=== PATIENT | male | born 1975 | race Caucasian/White ===

== ENCOUNTER 2020-11-20 17:22 | Emergency (ER) | payer OTHER, SELFPAY ==
[2020-11-20 17:36] VITALS: BP 162/90; PULSE 68; RESP 18; TEMP 36.3; O2SAT 96; BMI 37.3
--- NOTE | 2020-11-20 17:50 | ECG_ITS ---
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
[2020-11-20 18:05] VITALS: BP 142/82; PULSE 64; RESP 16; O2SAT 94
[2020-11-20 18:12] LABS: Add Urine Microscopic? NO
[2020-11-20 18:14] LABS: Basophils # 0.1 10^3/uL (0.0-0.1); Basophils % 0.9 %; Eosinophils # 0.4 10^3/uL (0.0-0.8); Eosinophils % 4.2 %; Hematocrit 43.6 % (42.0-52.0); Hemoglobin 14.8 g/dL (11.7-16.6); Lymphocytes # 2.8 10^3/uL (0.8-4.8); Lymphocytes % 31.4 %; Mean Corpuscular HGB Conc 33.9 g/dL (30.0-36.0); Mean Corpuscular Hemoglobin 32.1 pg (28.0-34.0); Mean Corpuscular Volume 94.6 fL (80-94); Mean Platelet Volume 10.5 fL (7.4-10.4); Monocytes # 0.6 10^3/uL (0.2-0.9); Monocytes % 6.6 %; Neutrophils # 4.96 10^3/uL (1.8-7.7); Neutrophils % 56.7 %; Nucleated Red Blood Cells % 0 %; Platelet Count 235 10^3/cmm (130-400); Red Blood Count 4.61 10^6/uL (4.1-5.3); Red Cell Distribution Width 12.5 % (12.1-15.1); White Blood Count 8.8 10^3/uL (4.0-10.0)
[2020-11-20 18:38] LABS: Alanine Aminotransferase 34 U/L (0-41); Albumin Level 4.2 g/dL (3.5-5.2); Alkaline Phosphatase 89 IU/L (40-130); Anion Gap 13.4 (5-19); Aspartate Amino Transferase 16 U/L (0-40); Blood Urea Nitrogen 17 mg/dL (6-20); Calcium 9.5 mg/dL (8.5-10.5); Carbon Dioxide 28 mmol/L (22-29); Chloride 103 mmol/L (98-107); Globulin 2.6 g/dL (1.3-4.6); Glomerular Filtration Rate 103.6 mL/min (90-130); Glucose 182 mg/dL (65-115); Lipase 56 U/L (13-60); Osmolality Calculated 296 mOsm/kg (285-295); Potassium 4.4 mmol/L (3.5-5.1); Sodium 140 mmol/L (136-145); Total Bilirubin 0.7 mg/dL (0.15-1.2); Total Protein 6.8 g/dL (6.6-8.7)
[2020-11-20 18:39] LABS: Lactate (Lactic Acid level) 1.3 mmol/L (0.5-2.2)
[2020-11-20 18:40] LABS: Troponin(5th) Baseline 7 ng/L (0-15)
[2020-11-20 18:42] LABS: Bilirubin Urine Neg (Negative); Blood Urine Neg (Negative); Glucose Urine UA Norm (Normal); Ketones Urine 1+ (Negative); Leukocyte Esterase Urine Negative (Negative); Nitrate Urine Negative (Negative); Protein Urine Neg (Negative); Specific Gravity, Urine 1.015 (1.005-1.030); Urine Appearance Clear (CLEAR); Urine Color Yellow (Yellow); Urobilinogen Urine 4 mg/dL (Negative); pH Urine 7 (5-7)
--- NOTE | 2020-11-20 18:52 | CTR_ITS ---
PROCEDURE INFORMATION: Exam: CT Abdomen And Pelvis With Contrast Exam date and time: 11/20/2020 7:39 PM Age: 45 years old Clinical indication: Abdominal pain; Patient HX: C/O L periumbilical pain TECHNIQUE: Imaging protocol: Computed tomography of the abdomen and pelvis with contrast. Radiation optimization: All CT scans at this facility use at least one of these dose optimization techniques: automated exposure control; mA and/or kV adjustment per patient size (includes targeted exams where dose is matched to clinical indication); or iterative reconstruction. Contrast material: OMNI 300; Contrast volume: 95 ml; Contrast route: INTRAVENOUS (IV); COMPARISON: No relevant prior studies available. RADIATION DOSE METRICS: Total DLP (mGy-cm): 1910.19 FINDINGS: Liver: Normal. No mass. Gallbladder and bile ducts: Normal. No calcified stones. No ductal dilation. Pancreas: Normal. No ductal dilation. Spleen: Normal. No splenomegaly. Adrenal glands: Normal. No mass. Kidneys and ureters: Normal. No hydronephrosis. Stomach and bowel: Colonic constipation is present. There is a 2 mm metallic density along the inferior aspect of the proximal descending colon. Appendix: A normal appendix is identified. Intraperitoneal space: Unremarkable. No free air. No significant fluid collection. Vasculature: Unremarkable. No abdominal aortic aneurysm. Lymph nodes: Unremarkable. No enlarged lymph nodes. Urinary bladder: Unremarkable as visualized. Reproductive: Unremarkable as visualized. Bones/joints: Unremarkable. No acute fracture. Soft tissues: Small fat containing umbilical hernia. CT/CT abdomen pelvis w con* [id number] IMPRESSION: Colonic constipation is present. Radiation Dose CTDIVOL = (mGy): DLP = 1910.19 (mGy-cm)
[2020-11-20] MEDS: ondansetron 2 mg/ML SDV 2 mL 4 MG IVP (19:00)
[2020-11-20] MEDS: ketorolac 30 mg/mL INJ IVP (19:00)
[2020-11-20] MEDS: enalaprilat 1.25 mg/mL Inj IVP (19:49)
[2020-11-20 19:50] VITALS: BP 180/115; PULSE 69; RESP 18; O2SAT 96
[2020-11-20] MEDS: iohexol 300 mg/mL 100 mL Btl IV (19:57)
[2020-11-20 20:09] VITALS: PULSE 89; RESP 18; O2SAT 95
--- NOTE | 2020-11-20 20:39 | ED_ITS ---
HPI - Abdominal Pain General: Chief Complaint: Abdominal Pain Stated Complaint: RLQ PA[place] [facility] [place] Time Seen by Provider: 11/20/20 18:20 History of Present Illness: HPI narrative: 45-year-old with periumbilical pain. He states he has had it since this afternoon. He states he was laughing when it started, it was sudden onset of a sharp stabbing pain around his bellybutton. It is very tender to touch. No fever, no nausea, no vomiting, no diarrhea, no blood in the stool. MD elicited complaint: abdominal pain Pertinent past history: none Onset (ago): hour(s) Pain Consistency: constant Location: Periumbilical Severity: moderate Quality: stabbing and sharp Radiation: none Migration to: no migration Exacerbating factors: movement Relieving factors: nothing Associated Symptoms: Denies GI cramping, diarrhea, dysuria, fever(s), hematochezia, hematuria, nausea and vomiting Review of Systems Const: Denies: fever(s) Eyes: Denies: change in vision ENMT: Denies: odynophagia or sinus pain Card: Denies: chest pain or palpitations Resp: Denies: dyspnea, productive cough, non-productive cough or wheezing GI: Denies: nausea, vomiting, diarrhea, GI cramping or hematochezia : Denies: dysuria or hematuria Musc: Denies: neck pain or back pain Skin/Breast: Denies: rash or erythema Neuro: Denies: headache(s), dizziness or vertigo Psych: Denies: anxiety PFSH ED PFSH: Social History (Updated 11/20/20 @ 16:53 by Brittani Browning LPN) Smoking and tobacco status: never smoked Physical Exam Const: GENERAL APPEARANCE: well developed ORIENTATION/CONSCIOUSNESS: Yes oriented to person, Yes oriented to place and Yes oriented to time HENMT: COMMON NORMALS: normocephalic, external ears normal and Normal external nose present HEAD & SCALP: normocephalic FACE & SINUS: normal facial exam NOSE: Normal external nose present and No nasal discharge present EXTERNAL EAR: Yes external ears normal Eye: COMMON NORMALS: Equal, round and reactive pupils present, EOMs intact bilaterally and conjunctivae normal EYELID: eyelids normal CONJUNCTIVA: Yes conjunctivae normal PUPIL: Yes Equal, round and reactive pupils present Neck/C-Spine: GENERAL: No tracheal deviation Chest: COMMONS NORMALS: normal inspection of the chest CHEST: No tenderness Resp: COMMON NORMALS: clear to auscultation bilaterally EFFORT & INSPECTION: No tachypneic, No respiratory distress, No retractions, No uses accessory muscles and No tracheal deviation AUSCULTATION: clear to auscultation bilaterally, no rhonchi, no wheezes and lung sounds not diminished Cardio: COMMON NORMALS: regular rate and regular rhythm RATE: regular rate RHYTHM: regular rhythm HEART SOUNDS: no murmurs PERIPHERAL PULSES: radial pulses present GI: COMMON NORMALS: Soft to palpation INSPECTION: No abdominal distension AUSCULTATION: No Hyperactive bowel sounds present and No Hypoactive bowel sounds present PALPATION: Yes Soft to palpation, Yes Tenderness to palpation present (GI) (Focal umbilical), No Guarding due to palpation present (GI) and No Rigid due to palpation PERCUSSION: no dullness to percussion and no tympanic to percussion Neuro: SENSORIUM/ORIENTATION: Yes oriented to person, Yes oriented to place and Yes oriented to time Psych: COMMON NORMALS: mental status grossly normal Skin: COMMON NORMALS: no rashes or lesions noted GENERAL SKIN EXAM: no rashes or lesions noted Course Vital Signs: Vital signs: Vital Signs Temperature 97.3 F L 11/20/20 17:36 Pulse Rate 59 L 11/20/20 21:33 Respiratory Rate 18 11/20/20 21:33 Blood Pressure 149/91 11/20/20 21:33 Pulse Oximetry 96 11/20/20 21:33 MDM - Abdominal Pain MDM Narrative: Medical decision making narrative: Patient is hypertensive. He is given medication for this. Blood pressure is down to 154/98 currently. He is asymptomatic with this. Patient refused morphine. Took the Toradol. CT of the belly shows constipation and a small fat-containing umbilical hernia where he is tender. There is no got incarceration. His labs are essentially normal. He will be allowed home. Lab Data: Labs: Lab Results 11/20/20 11/20/20 11/20/20 Range/Units 17:59 18:00 18:00 WBC 8.8 (4.0-10.0) 10^3/ uL RBC 4.61 (4.1-5.3) 10^6/u L Hgb 14.8 (11.7-16.6) g/dL Hct 43.6 (42.0-52.0) % MCV 94.6 H (80-94) fL MCH 32.1 (28.0-34.0) pg MCHC 33.9 (30.0-36.0) g/dL RDW 12.5 (12.1-15.1) % Plt Count 235 (130-400) 10^3/c mm MPV 10.5 H (7.4-10.4) fL Neut % (Auto) 56.7 % Lymph % (Auto) 31.4 % Hettinger % (Auto) 6.6 % Eos % (Auto) 4.2 % Baso % (Auto) 0.9 % Neut # (Auto) 4.96 (1.8-7.7) 10^3/u L Lymph # (Auto) 2.8 (0.8-4.8) 10^3/u L Hettinger # (Auto) 0.6 (0.2-0.9) 10^3/u L Eos # (Auto) 0.4 (0.0-0.8) 10^3/u L Baso # (Auto) 0.1 (0.0-0.1) 10^3/u L Nucleated RBC % (a uto) 0 % Nucleated RBCs # 0.0 /100WBC Sodium 140 (136-145) mmol/L Potassium 4.4 (3.5-5.1) mmol/L Chloride 103 (98-107) mmol/L Carbon Dioxide 28 (22-29) mmol/L Anion Gap 13.4 (5-19) BUN 17 (6-20) mg/dL Creatinine 0.8 (0.7-1.2) mg/dL GFR Calculation 103.6 (90-130) mL/min Glucose 182 H (65-115) mg/dL Calculated Osmolal ity 296 H (285-295) mOsm/k g Lactate (0.5-2.2) mmol/L Calcium 9.5 (8.5-10.5) mg/dL Total Bilirubin 0.7 (0.15-1.2) mg/dL AST 16 (0-40) U/L ALT 34 (0-41) U/L Alkaline Phosphata se 89 (40-130) IU/L Troponin T Baselin e (0-15) ng/L Total Protein 6.8 (6.6-8.7) g/dL Albumin 4.2 (3.5-5.2) g/dL Globulin 2.6 (1.3-4.6) g/dL Lipase 56 (13-60) U/L Urine Color Yellow (Yellow) Urine Appearance Clear (CLEAR) Urine pH 7 (5-7) Ur Specific Gravit y 1.015 (1.005-1.030) Urine Protein Neg (Negative) Urine Glucose (UA) Norm (Normal) Urine Ketones 1+ H (Negative) Urine Blood Neg (Negative) Urine Nitrate Negative (Negative) Urine Bilirubin Neg (Negative) Urine Urobilinogen 4 H (Negative) mg/dL Ur Leukocyte Taylor ase Negative (Negative) 11/20/20 11/20/20 Range/Units 18:00 18:00 WBC (4.0-10.0) 10^3/ uL RBC (4.1-5.3) 10^6/u L Hgb (11.7-16.6) g/dL Hct (42.0-52.0) % MCV (80-94) fL MCH (28.0-34.0) pg MCHC (30.0-36.0) g/dL RDW (12.1-15.1) % Plt Count (130-400) 10^3/c mm MPV (7.4-10.4) fL Neut % (Auto) % Lymph % (Auto) % Hettinger % (Auto) % Eos % (Auto) % Baso % (Auto) % Neut # (Auto) (1.8-7.7) 10^3/u L Lymph # (Auto) (0.8-4.8) 10^3/u L Hettinger # (Auto) (0.2-0.9) 10^3/u L Eos # (Auto) (0.0-0.8) 10^3/u L Baso # (Auto) (0.0-0.1) 10^3/u L Nucleated RBC % (a uto) % Nucleated RBCs # /100WBC Sodium (136-145) mmol/L Potassium (3.5-5.1) mmol/L Chloride (98-107) mmol/L Carbon Dioxide (22-29) mmol/L Anion Gap (5-19) BUN (6-20) mg/dL Creatinine (0.7-1.2) mg/dL GFR Calculation (90-130) mL/min Glucose (65-115) mg/dL Calculated Osmolal ity (285-295) mOsm/k g Lactate 1.3 (0.5-2.2) mmol/L Calcium (8.5-10.5) mg/dL Total Bilirubin (0.15-1.2) mg/dL AST (0-40) U/L ALT (0-41) U/L Alkaline Phosphata se (40-130) IU/L Troponin T Baselin e 7 (0-15) ng/L Total Protein (6.6-8.7) g/dL Albumin (3.5-5.2) g/dL Globulin (1.3-4.6) g/dL Lipase (13-60) U/L Urine Color (Yellow) Urine Appearance (CLEAR) Urine pH (5-7) Ur Specific Gravit y (1.005-1.030) Urine Protein (Negative) Urine Glucose (UA) (Normal) Urine Ketones (Negative) Urine Blood (Negative) Urine Nitrate (Negative) Urine Bilirubin (Negative) Urine Urobilinogen (Negative) mg/dL Ur Leukocyte Taylor ase (Negative) Discharge Plan Discharge Patient Disposition: Home Clinical Impression: Hernia, umbilical Qualifiers: Obstruction and gangrene presence: without obstruction or gangrene Qualified Code(s): K42.9 - Umbilical hernia without obstruction or gangrene Constipation Qualifiers: Constipation type: other constipation type Qualified Code(s): K59.09 - Other constipation Condition: Stable Prescriptions: New ketorolac 10 mg tablet 10 mg PO Q8H PRN (Reason: pain) 3 Days RF: 0 No Action simvastatin 20 mg tablet 20 mg PO DAILY@1900 RF: 0 loratadine 10 mg capsule 10 mg PO DAILY@0800 RF: 0 losartan 50 mg tablet 50 mg PO DAILY@0800 RF: 0 meloxicam 15 mg tablet 15 mg PO DAILY@1900 RF: 0 cholecalciferol (vitamin D3) 125 mcg (5,000 unit) capsule 125 mcg PO DAILY@0800 RF: 0 glimepiride 2 mg tablet 2 mg PO BID@0800,1900 RF: 0 metformin 750 mg tablet extended release 24 hr 750 mg PO BID@0800,1900 RF: 0 Men's Multivitamin 400-20-300 mcg Tablet 1 tab PO DAILY@0800 RF: 0 Fish Oil with Krill 1 tab PO DAILY@0800 RF: 0 Discharge Orders: Discharge ED (Routine); Ordered 11/20/20 Ordered By: Malick Smith Referrals: Jordi Malone [Primary Care Provider] - 4-7 days Discharge Diet: Advance as tolerated Discharge Activity: Limit activity as instructed Activity Restrictions/Additional Instructions: Try to limit your lifting to 15 lbs for the next week. Return for fever, vomiting, worsening pain despite treatment, other concerning symptoms Coding Level of Care Code ED Shiftman for Chg Fwd Exam Comprehensive
[2020-11-20] MEDS: magnesium citrate Btl 296 mL PO (21:32)
[2020-11-20 21:33] VITALS: BP 149/91; PULSE 59; RESP 18; O2SAT 96
== END 2020-11-20 21:34 | disposition home or self-care (01) ==
PROVIDERS: Family Medicine; Emergency Provider Emergency Medicine; PCP Family Medicine
DX: K42.9 Umbilical hernia without obstruction or gangrene (principal); K59.09 Other constipation; Z79.84 Long term (current) use of oral hypoglycemic drugs
CPT/HCPCS: 12345; 74177; 80053; 81003; 83605; 83690; 84484; 85025; 93005; 96374; 96375; 99283; J1885; J2405; J3490; Q9967

== ENCOUNTER → 2024-10-01 08:26 | Outpatient (BNVA) | payer OTHER, SELFPAY | PROVIDERS: PCP Family Medicine; Visit Provider Student in an Organized Health Care Education/Training Program | DX: G56.23 Lesion of ulnar nerve, bilateral upper limbs | CPT/HCPCS: 73130 ==

== ENCOUNTER 2024-11-11 06:59 | Day surgery (SDC) | payer OTHER, SELFPAY ==
[2024-11-11] VITALS (11 sets, daily range): BP systolic 121–161; BP diastolic 70–93; PULSE 58–81; RESP 11–20; TEMP 36.1–36.3; O2SAT 94–100; BMI 32.3
[2024-11-11] MEDS: sodium chloride 0.9% 1,000 ML 30 ML IV (07:35)
[2024-11-11] MEDS: acetaminophen 1,000 MG/100 ML PIGGYBACK 400 MG IV (07:36)
[2024-11-11] MEDS: ketorolac 30 mg/mL INJ IVP (07:36)
[2024-11-11 07:43] LABS: Glucose Point of Care 82 mg/dL (70-110)
--- NOTE | 2024-11-11 08:25 | ANES.PREANE2 ---
Pre-Anesthetic Assessment Height/Weight: Height 2.03 m Weight 133.81 kg Temp Pulse Resp BP Pulse Ox O2 Del Method 97.3 F L 58 L 18 121/90 98 Room Air 11/11/24 07:14 11/11/24 07:14 11/11/24 07:14 11/11/24 07:14 11/11/24 07:14 11/11/24 07:14 Operation Date: 11/11/24 08:35 Proposed Procedures p Cubital Tunnel Release(Right) - Deric Belknap, DO s Ulnar Nerve Transposition(Right) - Deric Belknap, DO Familial anesthetic complications: None Was Beta Shannon taken within 24 hours: N/A Was Clonidine taken within 24 hours: N/A Last intake: Intake Last Liquid Date 10/30/24 Last Liquid Time 20:00 Last Solid Date 11/10/24 Last Solid Time 20:00 Social No alcohol and No tobacco Exam alert, oriented x 3, clear to auscultation bilaterally and regular rate & rhythm Airway Mallampati: Class I Dentition: other (none) CV/HEM Hypertension Metabolic Diabetes Mellitus, Hyperlipidemia and Morbid Obesity Anesthetic Plan ASA status: 3 Anesthesia: General and Regional (specify below) Risk of > 500 ml blood loss (7ml/kg in children): No Medications/Allergies Home Medications Medication Instructions Recorded Confirmed Last Taken Type cholecalciferol (vitamin D3) 125 125 mcg PO DAILY@0800 11/20/20 11/10/24 10/14/24 History mcg (5,000 unit) capsule glimepiride 2 mg tablet 2 mg PO BID@0800,1900 11/20/20 11/10/24 11/10/24 History loratadine 10 mg capsule 10 mg PO DAILY@0800 11/20/20 11/10/24 11/20/20 History losartan 50 mg tablet 50 mg PO DAILY@0800 11/20/20 11/10/24 11/10/24 History meloxicam 15 mg tablet 15 mg PO DAILY@189911/20/20 11/10/24 11/03/24 History metformin 750 mg tablet,extended 750 mg PO BID@0800,1900 11/20/20 11/10/24 11/10/24 History release 24 hr simvastatin 20 mg tablet 20 mg PO DAILY@189911/20/20 11/10/24 11/09/24 History empagliflozin 10 mg tablet 10 mg PO DAILY 10/01/24 11/10/24 11/10/24 History (Jardiance) gabapentin 100 mg capsule 100 mg PO DAILY 10/01/24 11/10/24 11/10/24 History hydrocodone 5 mg-acetaminophen 325 1 tab PO Q6H PRN pain 5 days #20 11/11/24 Unknown Rx mg tablet tabs Allergies Allergy/AdvReac Type Severity Reaction Status Date / Time No Known Allergies Allergy Verified 10/01/24 08:31 Current Medications Generic Name Dose Route Start Last Admin Trade Name Freq PRN Reason Stop Dose Admin Sodium Chloride 1,000 mls @ 30 mls/hr 11/11/24 07:15 11/11/24 07:35 Sodium Chloride 0.9% IV 11/12/24 07:14 30 mls/hr .Q24H DAWNA Administration PFSH Anesthesia Social History Smoking and tobacco/nicotine status: never used tobacco/nicotine Data Anesthesia Cardiac Studies: No Data to Display
--- NOTE | 2024-11-11 08:45 | W.PM.OPSFHP ---
Same Day Surgery H&P Indication for Procedure/HPI DATE OF PROCEDURE: November 11, 2024 CHIEF COMPLAINT/INDICATIONFOR SURGICAL PROCEDURE: Right cubital tunnel syndrome PREOP DIAGNOSIS: Right cubital tunnel syndrome PLANNED PROCEDURE: Operation Date: 11/11/24 08:35 Proposed Procedures p Cubital Tunnel Release(Right) - Deric Grangeratt, DO s Ulnar Nerve Transposition(Right) - Deric Tushar, DO Medications/Allergies* Home Medications Medication Instructions Recorded Confirmed Type cholecalciferol (vitamin D3) 125 125 mcg PO DAILY@0800 11/20/20 11/10/24 History mcg (5,000 unit) capsule glimepiride 2 mg tablet 2 mg PO BID@0800,1900 11/20/20 11/10/24 History loratadine 10 mg capsule 10 mg PO DAILY@0800 11/20/20 11/10/24 History losartan 50 mg tablet 50 mg PO DAILY@0800 11/20/20 11/10/24 History meloxicam 15 mg tablet 15 mg PO DAILY@1900 11/20/20 11/10/24 History metformin 750 mg tablet,extended 750 mg PO BID@0800,1900 11/20/20 11/10/24 History release 24 hr simvastatin 20 mg tablet 20 mg PO DAILY@1900 11/20/20 11/10/24 History empagliflozin 10 mg tablet 10 mg PO DAILY 10/01/24 11/10/24 History (Jardiance) gabapentin 100 mg capsule 100 mg PO DAILY 10/01/24 11/10/24 History Allergies/Adverse Reactions Allergy/AdvReac Type Severity Reaction Status Date / Time No Known Allergies Allergy Verified 10/01/24 08:31 Current Medications: Generic Name Dose Route Start Last Admin Trade Name Freq PRN Reason Stop Dose Admin Sodium Chloride 1,000 mls @ 30 mls/hr 11/11/24 07:15 11/11/24 07:35 Sodium Chloride 0.9% IV 11/12/24 07:14 30 mls/hr .Q24H DAWNA Administration Pertinent History/Comorbid Conditions* Social History Smoking and tobacco/nicotine status: never used tobacco/nicotine Pertinent Exam Findings alert, oriented x 3, operative site marked and procedure specific exam findings Please refer to detailed orthopedic examination on 10/01/2024: Bilateral Upper Extremity Exam: -Normal C-spine ROM, with pain. -Negative Lhermitte's -Pain with Spurling's but no radiuclar symptoms to fingers -Negative Tinel's @ shoulder. Normal ROM -positive Tinel's @ elbows over cubital tunnel. Normal ROM -Negative median compression test @ wrist -Negative Tinel's @ wrist. Normal ROM -Good thenar strength, No atrophy -Intrinsic weakness noted -No intrinsic atrophy noted Recommendations Surgery/Procedure today Other Plans: Patient at this point in time here to the OR today for right cubital tunnel release with possible nerve transposition we talked about treatment options in detail/continue nonoperative versus operative invention he understands the ins outs of procedure the risk benefits complication alternatives of surgery and through shared decision making elected proceed with surgical invention today. All questions have been answered at this time. He does understand that this can be a slow recovery process for nerve regeneration. Understanding his risk of surgery elects proceed with surgical intervention today all questions answered. Coding Level of Care Code Acute Code for Chg Fwd
[2024-11-11] MEDS: ceFAZolin 2,000 MG in sodium chloride 0.9% (plus) 50 ML 100 MG IV (08:57)
[2024-11-11] MEDS: lidocaine-epi 2% PF 1:200,000 20 mL SDV XX (09:31)
[2024-11-11] MEDS: ROPivacaine 0.5% SDV 30 mL 150 MG INJECTION (09:31)
--- NOTE | 2024-11-11 09:56 | W.PM.BPON ---
Date of Procedure: [November 11, 2024] Surgeon: [Dr. Tushar DO] Chemical Machine Tender(s): [Avel chambers PA-C] Procedure(s) performed: [Right cubital tunnel release] Findings of the procedure(s): [Right cubital tunnel syndrome with ulnar nerve entrapment at the elbow. No ulnar nerve subluxation with range of motion so no nerve transposition was needed. Procedure went well and as planned.] Estimated blood loss: [5 mL] Specimen(s) removed: [N/A] Post-operative diagnosis: [Right cubital tunnel syndrome with ulnar nerve entrapment at the elbow.]
--- NOTE | 2024-11-11 09:59 | P.PCN_ITS ---
PACU note Narrative: Patient is a 49-year-old male who just underwent a right cubital tunnel release. Patient transferred to PACU in stable condition. Pain is well controlled. Dressing on elbow is dry and in place. Patient's fingers are warm and well- perfused. Patient can wiggle fingers. normal cap refill under 2 seconds. sensation to hand intact. Exam: awake Disposition: discharged
--- NOTE | 2024-11-11 11:10 | ANE.PACU2 ---
Inpatient post-anesthesia follow up: Airway intact: Yes Vital signs: Temperature 97.0 F Pulse Rate 70 Respiratory Rate 18 Blood Pressure 150/93 Pulse Oximetry 98 Oxygen Delivery Me thod Room Air Oxygen Flow Rate 8 Fraction of Inspir ed Oxygen Hydration adequate: Yes Nausea and vomiting: No Pain level: 1 Mental status: Baseline
--- NOTE | 2024-11-11 11:29 | PM.OP ---
Operative Report Date of procedure: November 11, 2024 Surgeon: Deric Finley DO Absorption And Adsorption Engineer: Avel Finley PA-C: PA was necessary for assistance in this case with hand positioning to execute the procedure, retraction and protection of neurovascular structures as well as to assist with wound closure and dressing application. Procedure: Preoperative diagnosis: Right?cubital?tunnel syndrome Post-op diagnosis:? 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 Patient nerve study does signs of ulnar nerve paresthesias at the right elbow and on my examination in the office patient findings are consistent with this preoperative diagnosis. We had detailed discussion in office about continued nonoperative intervention versus operative intervention.? Patient understands the risk benefits complications alternatives to surgical and nonsurgical treatment options.? Patient understands the risks include but not limited to make it better, make it worse, infection, permanent injury to nerve, decreased function and sensation to the hand with persistent weakness.? Given these risks patient understands and agrees to proceed with current plan.? Patient elects to proceed with a right?cubital?tunnel release with possible ulnar nerve transposition. all questions answered. Procedure: Patient was seen and evaluated in the preoperative holding area.? The consent that was filled out in office was reviewed with patient and confirmed to be appropriate for right ulnar nerve?cubital?tunnel release and possible ulnar nerve transposition.? Correct extremity was then marked.? Patient was seen evaluated by the preoperative team as well as anesthesia department.? Once cleared for surgery patient was then taken to the operative suite and transported onto the operative table all bony prominences were well-padded and patient was secured to the table.? Right upper extremity was placed on an armboard.? Patient then underwent anesthesia per the anesthesia department. The right upper extremity tourniquet was applied. Patient's right upper extremity was then prepped and draped in standard orthopedic fashion.? This point a final timeout was performed. Patient received appropriate preop antibiotics. Esmarch tourniquet was used to exsanguinate the operative extremity and was insufflated to 250 mmHg.? Standard curvilinear incision was made centering over the ulnar nerve between the medial epicondyle and olecranon process.? Sharp scalpel excision through skin and subcutaneous tissue was performed.? Once I encountered subcutaneous tissue I then utilized dissection scissors to spread in the path of the [facility] and care was made to protect any nerve branches throughout this case.? I then utilized a scalpel to complete my dissection directly on over to the flexor pronator mass and elevated this fat tissue directly off of the fascia.? I started my dissection of the ulnar nerve the nerve proximally.? Once identified I then utilized Littler dissection scissors and decompress the nerve completely and proximally and utilized blunt dissection to make sure there was no entrapment proximally.? Once decompressed proximally I then traced the nerve distal through Fleming's ligament and as it entered the FCU fascia aponeurosis and completed by decompression and ulnar nerve neurolysis distally.? The nerve was completely released in situ no areas of entrapment I was able to place my finger distally and proximally with no areas entrapment along the nerve.? At this point in time by in situ release was completed I then subsequently took the elbow through range of motion and and there was no evidence of ulnar nerve subluxation as result no transposition needed.??It was evident patient had significant entrapment near Fleming's ligament with hourglass shaping due to compression through the tunnel. Ulnar nerve was completely decompressed and completed the procedure. Wound bed was then thoroughly irrigated.? Tourniquet was deflated.? Maintained exact hemostasis with bipolar electrocautery.? The skin was reapproximated with interrupted Vicryl subcutaneous suture 3-0.? I next utilized a running horizontal mattress stitch with 3-0 nylon.? Extremity was then cleaned and the incision was then covered with Xeroform 4 x 4's ABD Curlex and soft roll and a Matteo wrap was then applied with an Matteo wrap.? Patient was then awakened from anesthesia and taken to PACU in stable condition. Disposition: Patient taken to PACU in stable condition.? Patient given appropriate discharge instructions as well as pain medication.? ?Patient will see orthopedics in office in 2 weeks.? pt understands? if they has any questions they can contact the office.
== END 2024-11-11 11:10 | disposition home or self-care (01) ==
PROVIDERS: PCP Family Medicine; Visit Provider Student in an Organized Health Care Education/Training Program
PROC: (CPT 64718; principal; 2024-11-11 08:25)
DX: G56.21 Lesion of ulnar nerve, right upper limb (principal); I10 Essential (primary) hypertension; E11.9 Type 2 diabetes mellitus without complications; E78.5 Hyperlipidemia, unspecified; E66.01 Morbid (severe) obesity due to excess calories; Z68.32 Body mass index [BMI] 32.0-32.9, adult; Z79.899 Other long term (current) drug therapy
CPT/HCPCS: 64718; 36416; 82962; J0131; J0690; J1885; J2250; J2405; J2704; J2795; J3010; J7030